=== PATIENT | female | born 1990 | race Caucasian/White ===

== ENCOUNTER → 2016-05-24 | Outpatient (CLI) | payer OTHER ==
--- NOTE | 2016-05-25 09:59 | REP ---
CT IACs without contrast: 05/24/2016: Clinical history: Tympanosclerosis left ear. Evaluate for cholesteatoma. Prior history of PE tubes as a child with patch for perforated eardrum. Axial thin-section images with magnified 1 mm reconstructions in coronal and axial bone window settings for each side. Findings: The bilateral external auditory canals were intact. The bony ossicles show no soft tissue component or erosive change. There is no erosion or soft tissue abnormality about the scutum. The roof of the attic was intact. Prussak's space was without soft tissue density on either side. The pneumatization of the bilateral temporal bones was symmetric. I do not see significant opacification or air-fluid levels of the air cells. There is no bony erosion or destruction. The internal auditory canals and semicircular canals appear symmetric and grossly normal. There are no other significant findings. Adjacent mandibular condyles and condylar fossa were unremarkable. Visualized portions of the temporal bone and occipital bone included were otherwise unremarkable. Visualized sphenoid sinuses were clear. Impression: 1. There is no CT evidence for bony destruction of the scutum, soft tissue abnormalities in an asymmetric fashion or bony erosions. 2. Internal auditory canals, semicircular canals and other structures symmetric and normal. The bony ossicles intact. Signed by Kobe Servin MD 05/25/2016 05:04 P
== END ==
LOC: M RAD 16:41
PROVIDERS: ATTEND Otolaryngology
DX: H74.02 Tympanosclerosis, left ear (principal)

== ENCOUNTER 2016-10-04 12:10 | Emergency (ER) | payer OTHER ==
[~2016-10-04] VITALS: Ht 160 cm; Wt 59.1 kg
[2016-10-04] MEDS ORDERED: birth control PO (12:34)
[2016-10-04] MEDS ORDERED: KETOROLAC 60 MG/2 ML VIAL (J1885) IM ONE (14:00)
--- NOTE | 2016-10-04 14:13 | REP ---
AP pelvis and right hip: AP pelvis one-view: No pelvic fracture is identified. Mineralization is normal. There are no foreign bodies. The sacroiliac and right and left hip articulations are unremarkable. Impression: Negative AP pelvis. Right hip two views AP and frog-leg projections: Mineralization and joint space are normal. There is no fracture or dislocation. No calcifications or foreign bodies. Impression: Negative right hip. Signed by Hakan Veloz MD 10/04/2016 02:05 P
[2016-10-04] MEDS ORDERED: NAPR500T PO (15:07)
[2016-10-04 15:25] VITALS: BP 122/65
== END 2016-10-04 15:28 | disposition home or self-care (01) ==
LOC: M ED 12:10
DX: S70.01XA Contusion of right hip, initial encounter (principal); V86.64XA Passenger of military vehicle injured in nontraffic accident, initial encounter; Y92.89 Other specified places as the place of occurrence of the external cause; Y93.89 Activity, other specified; Y99.1 Military activity
CPT/HCPCS: 73502; 96372; 99283; J1885

== ENCOUNTER → 2017-04-13 | Outpatient (CLI) | payer OTHER | LOC: M RADPRO 09:48 | DX: M25.851 Other specified joint disorders, right hip (principal); M21.951 Unspecified acquired deformity of right thigh; Z88.0 Allergy status to penicillin; Z88.1 Allergy status to other antibiotic agents; Z88.8 Allergy status to other drugs, medicaments and biological substances | CPT/HCPCS: 20610 ==

== ENCOUNTER → 2017-06-07 | Outpatient (CLI) | payer OTHER | LOC: M PAIN 13:45 | DX: R10.31 Right lower quadrant pain (principal); S70.11XS Contusion of right thigh, sequela; Z79.899 Other long term (current) drug therapy | CPT/HCPCS: G0463 ==

== ENCOUNTER → 2017-06-24 | Outpatient (CLI) | payer OTHER | LOC: M PAIN 13:45 | DX: R10.31 Right lower quadrant pain (principal); S70.11XA Contusion of right thigh, initial encounter; Z79.899 Other long term (current) drug therapy; Z88.0 Allergy status to penicillin; Z88.1 Allergy status to other antibiotic agents; Z88.8 Allergy status to other drugs, medicaments and biological substances; X58.XXXA Exposure to other specified factors, initial encounter; Y92.9 Unspecified place or not applicable | CPT/HCPCS: G0463 ==

== ENCOUNTER → 2017-08-12 | Outpatient (CLI) | payer OTHER ==
[~2017-08-12] MED LIST: CONRAY-43 43% 50ML VIAL (Q9960) As Ordered; LIDOCAINE 1% MDV 20ML VIAL As Ordered; TRIAMCINOLONE ACETONIDE SUSP 40 MG/ML VIAL (J3301) As Ordered
== END ==
LOC: M RADPRO 10:23
DX: M76.9 Unspecified enthesopathy, lower limb, excluding foot (principal)
CPT/HCPCS: 20610

== ENCOUNTER → 2017-10-07 | Outpatient (CLI) | payer OTHER | LOC: M PAIN 10:30 | DX: R10.31 Right lower quadrant pain (principal); S70.11XA Contusion of right thigh, initial encounter; X58.XXXA Exposure to other specified factors, initial encounter; Y92.9 Unspecified place or not applicable; Z79.899 Other long term (current) drug therapy; Z88.0 Allergy status to penicillin; Z88.1 Allergy status to other antibiotic agents; Z88.5 Allergy status to narcotic agent | CPT/HCPCS: G0463 ==